=== PATIENT | female | born 1975 | race Caucasian/White ===

== ENCOUNTER → 2016-12-17 | Outpatient (CLI) | payer OTHER, MEDICARE | END | disposition home or self-care (01) | LOC: LAB 15:17 | PROVIDERS: ATTEND Internal Medicine | DX: M79.7 Fibromyalgia (principal); G89.4 Chronic pain syndrome | CPT/HCPCS: 80307 ==

== ENCOUNTER 2016-12-20 16:43 | Emergency (ER) | payer MEDICARE, OTHER ==
[~2016-12-20] VITALS: Ht 172.7 cm; Wt 109.8 kg
[2016-12-20 17:00] VITALS: BP 138/100
== END 2016-12-20 20:40 | disposition left against medical advice (07) ==
LOC: ER 16:43
DX: Z76.1 Encounter for health supervision and care of foundling (principal); Z76.0 Encounter for issue of repeat prescription; Z53.21 Procedure and treatment not carried out due to patient leaving prior to being seen by health care provider

== ENCOUNTER → 2017-05-06 | Outpatient (CLI) | payer OTHER, MEDICAID ==
[2017-05-06 16:20] LABS: Basophils # (auto) 0.1 uL; Eosinophils # (auto) 0.2 uL; Eosinophils % (auto) 1.8 % (0.0-7.0); Lymphocytes # (auto) 3.7 uL; Lymphocytes % (auto) 30.5 % (10.0-50.0); Mean Corpuscular Hemoglobin 30.2 pg (28.0-32.0); Mean Corpuscular Hgb Conc. 33.3 g/dL (32.0-36.0); Mean Corpuscular Volume 90.9 fL (80.0-100.0); Monocytes # (auto) 0.6 uL; Neutrophils # (auto) 7.5 uL; Neutrophils % (auto) 61.7 % (37.0-80.0); Nucleated Red Blood Cells % 0.1 %; Platelet Count (auto) 328 10^3/uL (140-450); Red Blood Cells 4.95 10^6/uL (4.0-5.20); Red Cell Distribution Width 13.1 % (11.8-14.3); White Blood Cell 12.1 10^3/uL (4.4-10.8)
[2017-05-06 16:56] LABS: Urine Bacteria NONE SEEN /hpf (None Seen); Urine Blood Negative /uL (Negative); Urine Specific Gravity 1.005 (1.001-1.035); Urine WBC <1 /hpf (0 - 5)
[2017-05-06 17:01] LABS: Albumin 4.3 g/dL (3.4-5.0); BUN/Creatinine Ratio 12.5; Bilirubin, Total 0.8 mg/dL (0.2-1.0); Calcium 9.1 mg/dL (8.5-10.1); Potassium 4.4 mmol/L (3.5-5.1)
[2017-05-06 17:03] LABS: Free T4 (Free Thyroxine) 0.91 ng/dL (0.89-1.76)
[2017-05-06 17:04] LABS: Follicle Stimulating Hormone 6.45 IU/L (SEE BELOW)
== END | disposition home or self-care (01) ==
LOC: LAB 16:03
PROVIDERS: ATTEND Internal Medicine
DX: E03.9 Hypothyroidism, unspecified (principal); R25.1 Tremor, unspecified
CPT/HCPCS: 36415; 80053; 80061; 81001; 83001; 84439; 84443; 85025; 85652

== ENCOUNTER → 2017-06-01 | Outpatient (CLI) | payer MEDICARE, OTHER ==
[2017-06-01 14:36] LABS: Basophils # (auto) 0 uL; Basophils % (auto) 0.3 % (0.0-2.0); Eosinophils # (auto) 0.2 uL; Eosinophils % (auto) 1.8 % (0.0-7.0); Hematocrit 41.6 % (36.0-46.0); Hemoglobin 13.8 g/dL (12.2-16.2); Lymphocytes # (auto) 3.4 uL; Lymphocytes % (auto) 30.4 % (10.0-50.0); Mean Corpuscular Hemoglobin 30.6 pg (28.0-32.0); Mean Corpuscular Hgb Conc. 33.3 g/dL (32.0-36.0); Mean Corpuscular Volume 91.8 fL (80.0-100.0); Mean Platelet Volume 8.6 fL (6.9-10.8); Monocytes # (auto) 0.5 uL; Monocytes % (auto) 4.2 % (0.0-12.0); Neutrophils % (auto) 63.3 % (37.0-80.0); Nucleated Red Blood Cells % 0.1 %; Platelet Count (auto) 278 10^3/uL (140-450); Red Cell Distribution Width 13.5 % (11.8-14.3); White Blood Cell 11.1 10^3/uL (4.4-10.8)
[2017-06-01 15:00] LABS: Urine Bilirubin Negative (Negative); Urine Blood Negative /uL (Negative); Urine Color Yellow (Yellow); Urine Glucose Normal (Normal); Urine Ketone Negative (Negative); Urine Nitrite Negative (Negative); Urine RBC 1 /hpf (0 - 4); Urine Squamous Epithelial Cell FEW /hpf (<5); Urine Urobilinogen Normal (Negative)
[2017-06-01 15:01] LABS: Albumin 3.9 g/dL (3.4-5.0); BUN/Creatinine Ratio 12.5; Bilirubin, Total 0.7 mg/dL (0.2-1.0); Calcium 8.6 mg/dL (8.5-10.1); Total Protein 7.3 g/dL (6.4-8.2)
[2017-06-02 17:07] LABS: Sjogren's Anti-SS-A Antibody <0.2 AI (0.0-0.9)
[2017-06-03 04:06] LABS: Thyroid Peroxidase (TPO) Ab 16 IU/mL (0-34)
[2017-06-03 10:08] LABS: Anti-intermyofibrillar Ab Negative (Neg:<1:20); Anti-sarcolemma Antibody Negative (Neg:<1:20)
== END | disposition home or self-care (01) ==
LOC: LAB 13:39
PROVIDERS: ATTEND Internal Medicine
DX: N95.1 Menopausal and female climacteric states (principal); M25.50 Pain in unspecified joint; R00.2 Palpitations; R73.01 Impaired fasting glucose
CPT/HCPCS: 36415; 80053; 81001; 82088; 82384; 83001; 83036; 84439; 84443; 85025; 86225; 86235; 87040

== ENCOUNTER → 2017-10-06 | Outpatient (CLI) | payer MEDICARE, OTHER ==
[2017-10-06 14:28] LABS: Basophils # (auto) 0.1 uL; Basophils % (auto) 0.8 % (0.0-2.0); Eosinophils # (auto) 0.1 uL; Eosinophils % (auto) 1.1 % (0.0-7.0); Hemoglobin 13.9 g/dL (12.2-16.2); Lymphocytes # (auto) 2.9 uL; Lymphocytes % (auto) 28.9 % (10.0-50.0); Mean Corpuscular Hemoglobin 30.5 pg (28.0-32.0); Mean Corpuscular Hgb Conc. 33.1 g/dL (32.0-36.0); Mean Corpuscular Volume 92.2 fL (80.0-100.0); Monocytes # (auto) 0.4 uL; Neutrophils # (auto) 6.5 uL; Neutrophils % (auto) 65.2 % (37.0-80.0); Nucleated Red Blood Cells % 0.1 %; Platelet Count (auto) 279 10^3/uL (140-450); Red Blood Cells 4.56 10^6/uL (4.0-5.20); Red Cell Distribution Width 13.5 % (11.8-14.3); White Blood Cell 9.9 10^3/uL (4.4-10.8)
[2017-10-06 14:56] LABS: Leuteinizing Hormone 7.7 IU/L
[2017-10-06 14:57] LABS: Follicle Stimulating Hormone 10.35 IU/L (SEE BELOW)
== END | disposition home or self-care (01) ==
LOC: LAB 13:23
PROVIDERS: ATTEND Obstetrics & Gynecology
DX: N93.9 Abnormal uterine and vaginal bleeding, unspecified (principal); E03.9 Hypothyroidism, unspecified; I10 Essential (primary) hypertension
CPT/HCPCS: 36415; 82670; 83001; 83002; 84403; 84443; 85025

== ENCOUNTER → 2017-11-15 | Outpatient (CLI) | payer MEDICARE, OTHER ==
[2017-11-15 16:26] LABS: Basophils # (auto) 0.1 uL; Basophils % (auto) 1.4 % (0.0-2.0); Eosinophils # (auto) 0.1 uL; Eosinophils % (auto) 1.2 % (0.0-7.0); Hematocrit 42.5 % (36.0-46.0); Hemoglobin 14.2 g/dL (12.2-16.2); Lymphocytes # (auto) 2.9 uL; Lymphocytes % (auto) 27.9 % (10.0-50.0); Mean Corpuscular Hemoglobin 30.6 pg (28.0-32.0); Mean Corpuscular Hgb Conc. 33.4 g/dL (32.0-36.0); Mean Corpuscular Volume 91.7 fL (80.0-100.0); Monocytes # (auto) 0.5 uL; Monocytes % (auto) 4.6 % (0.0-12.0); Neutrophils # (auto) 6.7 uL; Neutrophils % (auto) 64.9 % (37.0-80.0); Nucleated Red Blood Cells % 0.1 %; Platelet Count (auto) 295 10^3/uL (140-450); Red Blood Cells 4.64 10^6/uL (4.0-5.20); Red Cell Distribution Width 13.5 % (11.8-14.3); White Blood Cell 10.4 10^3/uL (4.4-10.8)
[2017-11-15 16:58] LABS: Magnesium 2.6 mg/dL (1.6-2.6); Potassium 4.4 mmol/L (3.5-5.1)
== END | disposition home or self-care (01) ==
LOC: LAB 16:04
PROVIDERS: ATTEND Internal Medicine
DX: I10 Essential (primary) hypertension (principal); E03.9 Hypothyroidism, unspecified
CPT/HCPCS: 36415; 83735; 84132; 84439; 84443; 85025

== ENCOUNTER → 2018-02-09 | Outpatient (CLI) | payer MEDICARE, OTHER | END | disposition home or self-care (01) | LOC: LAB 10:53 | PROVIDERS: ATTEND Internal Medicine | DX: I10 Essential (primary) hypertension (principal); R00.2 Palpitations; R00.0 Tachycardia, unspecified; E03.9 Hypothyroidism, unspecified | CPT/HCPCS: 82384 ==

== ENCOUNTER → 2018-07-25 | Outpatient (CLI) | payer MEDICARE, OTHER ==
[2018-07-25 16:21] LABS: Albumin 4.3 g/dL (3.4-5.0); Anion Gap 4 (5-15); Calcium 8.8 mg/dL (8.5-10.1); Carbon Dioxide 28 mmol/L (21-32); Chloride 104 mmol/L (98-107); Glucose 75 mg/dL (74-106); Magnesium 2.4 mg/dL (1.6-2.6); Potassium 4.8 mmol/L (3.5-5.1); Sodium 136 mmol/L (136-145)
[2018-07-25 16:29] LABS: Alkaline Phosphatase 78 U/L (45-117); Aspartate Aminotransferase 14 U/L (15-37); BUN/Creatinine Ratio 12.9; Bilirubin, Total 0.7 mg/dL (0.2-1.0); Blood Urea Nitrogen 9 mg/dL (7-18); GFR African American > 60 mL/min; GFR Non-African American > 60 mL/min
[2018-07-25 16:31] LABS: Alanine Aminotransferase 20 U/L (13-56)
== END | disposition home or self-care (01) ==
LOC: LAB 15:25
PROVIDERS: ATTEND Internal Medicine
DX: R00.2 Palpitations (principal); I10 Essential (primary) hypertension; E03.9 Hypothyroidism, unspecified
CPT/HCPCS: 36415; 80053; 83735; 84439; 84443

== ENCOUNTER → 2019-04-25 | Outpatient (CLI) | payer MEDICARE, OTHER ==
[2019-04-25 11:16] LABS: Basophils # (auto) 0.1 uL; Basophils % (auto) 0.7 % (0.0-2.0); Eosinophils # (auto) 0.2 uL; Eosinophils % (auto) 2.5 % (0.0-7.0); Hematocrit 43.2 % (36.0-46.0); Hemoglobin 14.3 g/dL (12.2-16.2); Lymphocytes # (auto) 2.5 uL; Lymphocytes % (auto) 25.8 % (10.0-50.0); Mean Corpuscular Hgb Conc. 33.2 g/dL (32.0-36.0); Mean Corpuscular Volume 90.3 fL (80.0-100.0); Monocytes # (auto) 0.5 uL; Monocytes % (auto) 5.4 % (0.0-12.0); Neutrophils # (auto) 6.4 uL; Neutrophils % (auto) 65.6 % (37.0-80.0); Platelet Count (auto) 299 10^3/uL (140-450); Red Blood Cells 4.79 10^6/uL (4.0-5.20); Red Cell Distribution Width 13.4 % (11.8-14.3); White Blood Cell 9.8 10^3/uL (4.4-10.8)
[2019-04-25 11:18] LABS: Urine Bacteria NONE SEEN /hpf (None Seen); Urine Blood Negative /uL (Negative); Urine Specific Gravity 1.012 (1.001-1.035); Urine WBC 1 /hpf (0 - 5)
[2019-04-25 12:22] LABS: Potassium 4.2 mmol/L (3.5-5.1)
[2019-04-25 12:40] LABS: BUN/Creatinine Ratio 10.7; Bilirubin, Total 0.3 mg/dL (0.2-1.0); Total Protein 7.5 g/dL (6.4-8.2)
== END | disposition home or self-care (01) ==
LOC: LAB 10:31
PROVIDERS: ATTEND Internal Medicine
DX: I10 Essential (primary) hypertension (principal)
CPT/HCPCS: 36415; 80053; 80061; 81001; 82043; 84439; 84443; 85025; 85652

== ENCOUNTER → 2019-12-06 | Emergency (ER) | payer MEDICARE, OTHER ==
[~2019-12-06] VITALS: Ht 172.7 cm; Wt 95.3 kg
[~2019-12-06] MED LIST: AMIT25TA9 PO; BUSP15TA60 PO; HYDR-4833 PO; METO-159 PO; MIDAZOLAM HCL 5 MG/ML-1ML VIAL IV ONE; MORPHINE SULF INJ 2 MG/ML SYRINGE 1ML ONE; MORPHINE SULFATE 4 MG/ML SYR/VIAL IV ONE; ONDANSETRON HCL 4 MG/2 ML VIAL IV ONE; ONDANSETRON HCL 4 MG/2 ML VIAL ONE; ROPI3TAB4 PO; SERT-160 PO; TIZA4CAP PO; fentaNYL CITRATE 100 MCG/2 ML VL IV ONE
[2019-12-06 03:04] LABS: Basophils # (auto) 0.1 10 ^3/uL (0-0.2); Basophils % (auto) 0.4 % (0.0-2.0); Eosinophils # (auto) 0.1 10 ^3/uL (0-0.8); Eosinophils % (auto) 0.5 % (0.0-7.0); Hematocrit 41.4 % (36.0-46.0); Hemoglobin 13.8 g/dL (12.2-16.2); Lymphocytes # (auto) 1.9 10 ^3/uL (0.4-5.4); Lymphocytes % (auto) 10.1 % (10.0-50.0); Mean Corpuscular Hemoglobin 30.1 pg (28.0-32.0); Mean Corpuscular Hgb Conc. 33.2 g/dL (32.0-36.0); Mean Corpuscular Volume 90.7 fL (80.0-100.0); Monocytes # (auto) 0.8 10 ^3/uL (0-1.3); Monocytes % (auto) 4.3 % (0.0-12.0); Neutrophils # (auto) 16.2 10 ^3/uL (1.6-8.6); Neutrophils % (auto) 84.7 % (37.0-80.0); Nucleated Red Blood Cells % 0.3 %; Platelet Count (auto) 283 10^3/uL (140-450); Red Blood Cells 4.56 10^6/uL (4.0-5.20); Red Cell Distribution Width 14.5 % (11.8-14.3); White Blood Cell 19.1 10^3/uL (4.4-10.8)
[2019-12-06 03:22] LABS: Albumin 3.9 g/dL (3.4-5.0); Anion Gap 7 (5-15); Blood Urea Nitrogen 24 mg/dL (7-18); Calcium 8.8 mg/dL (8.5-10.1); Carbon Dioxide 25 mmol/L (21-32); Chloride 106 mmol/L (98-107); Glucose 127 mg/dL (74-106); Magnesium 2.5 mg/dL (1.6-2.6); Potassium 3.9 mmol/L (3.5-5.1); Sodium 138 mmol/L (136-145)
[2019-12-06 03:31] LABS: Alanine Aminotransferase 22 U/L (13-56); Alkaline Phosphatase 86 U/L (45-117); Aspartate Aminotransferase 13 U/L (15-37); Bilirubin, Total 0.4 mg/dL (0.2-1.0); GFR African American 70 mL/min; GFR Non-African American 58 mL/min; Total Protein 7.2 g/dL (6.4-8.2)
[2019-12-06 06:37] VITALS: BP 121/65
== END | disposition home or self-care (01) ==
LOC: EDUNIT# 01:41 → EDBD 01:50 → ER 01:53
DX: S82.891A Other fracture of right lower leg, initial encounter for closed fracture (principal); E07.9 Disorder of thyroid, unspecified; Z88.2 Allergy status to sulfonamides; Z88.8 Allergy status to other drugs, medicaments and biological substances; W19.XXXA Unspecified fall, initial encounter; Y93.89 Activity, other specified; Y92.89 Other specified places as the place of occurrence of the external cause; Y99.8 Other external cause status
CPT/HCPCS: 27840; 36415; 70450; 73600; 73610; 80053; 83735; 84484; 85025; 93005; 96374; 96375; 99152; 99285; J2250; J2270; J2405; J3010

== ENCOUNTER 2019-12-07 15:10 | Inpatient (IN) | payer MEDICARE, OTHER ==
[~2019-12-07] VITALS: Ht 172.7 cm; Wt 98.0 kg
[2019-12-07 15:30] VITALS: BP 126/64
--- NOTE | 2019-12-07 15:30 | NUR ---
PT ARRIVED FROM ER VIA WHEELCHAIR, RT FOOT IS COVERED WITH ROSANGELA WRAP, WAS ABLE TO TRANSFER HER SELF TO BED CAREFULLY, WITH SOME ASSISTANCE, PT IS ALERT ORIENTED X4, ABLE TO VERBALIS HER NEEDS, ROOM ORIENTATION GIVEN TO PT, CALL LIGHT WITHIN REACH
[2019-12-07] MEDS ORDERED: DOCUSATE SOD 100 MG CAP PO PRN (15:45)
[2019-12-07] MEDS ORDERED: MORPHINE SULF INJ 2 MG/ML SYRINGE 1ML IV PRN (15:45)
[2019-12-07] MEDS ORDERED: ALUM & MAG HYDROX-SIMETH LIQ(MAALOX) 30 ML PO PRN (15:45)
[2019-12-07] MEDS ORDERED: NITROGLYCERIN 0.4 MG SL TAB SL PRN (15:45)
--- NOTE | 2019-12-07 15:45 | NUR ---
IV insertion IV access obtained, via clean sterile technique by inserting 22 gauge catheter at after attempt(s). IV secured properly. No trauma to site. Patient tolerated procedure well.
[2019-12-07] MEDS ORDERED: hydrALAZINE HCL 20 MG/ML VL IV PRN (16:00)
[2019-12-07] MEDS ORDERED: cefTRIAXone 1GM/50ML D5W 50 ML IV ONE (16:00)
--- NOTE | 2019-12-07 16:15 | NUR ---
DR AYALA AT BED SIDE FOLLOWING UP ON PT WITH NEW ORDERS
[2019-12-07] MEDS ORDERED: METOPROLOL TARTRATE 1MG/1ML-5ML VIAL IV PRN (16:30)
--- NOTE | 2019-12-07 16:30 | NUR ---
ECG TAKEN DR AYALA MADE AWARE OF THE RESULTS
[2019-12-07] MEDS: SODIUM CHLORIDE 0.9% 1,000 ML IV SCH (16:38)
[2019-12-07 16:49] LABS: Basophils # (auto) 0.1 10 ^3/uL (0-0.2); Basophils % (auto) 0.4 % (0.0-2.0); Eosinophils # (auto) 0.3 10 ^3/uL (0-0.8); Eosinophils % (auto) 2.4 % (0.0-7.0); Hematocrit 40.5 % (36.0-46.0); Hemoglobin 13.5 g/dL (12.2-16.2); Lymphocytes # (auto) 2.7 10 ^3/uL (0.4-5.4); Mean Corpuscular Hemoglobin 30.9 pg (28.0-32.0); Mean Corpuscular Hgb Conc. 33.4 g/dL (32.0-36.0); Mean Corpuscular Volume 92.4 fL (80.0-100.0); Monocytes # (auto) 0.7 10 ^3/uL (0-1.3); Monocytes % (auto) 5.8 % (0.0-12.0); Neutrophils % (auto) 70.4 % (37.0-80.0); Platelet Count (auto) 225 10^3/uL (140-450); Red Blood Cells 4.38 10^6/uL (4.0-5.20); Red Cell Distribution Width 14.3 % (11.8-14.3); White Blood Cell 12.8 10^3/uL (4.4-10.8)
[2019-12-07 16:50] LABS: Anion Gap 2 (5-15); Blood Urea Nitrogen 9 mg/dL (7-18); Calcium 8.2 mg/dL (8.5-10.1); Carbon Dioxide 28 mmol/L (21-32); Chloride 109 mmol/L (98-107); Glucose 91 mg/dL (74-106); Potassium 4.4 mmol/L (3.5-5.1); Sodium 139 mmol/L (136-145)
[2019-12-07 16:57] LABS: Cholesterol 165 mg/dL (< 200); GFR African American 119 mL/min; GFR Non-African American 99 mL/min; HDL Cholesterol 59 mg/dL (40-59); LDL Cholesterol 85 mg/dL (< 100); Triglycerides 90 mg/dL (< 150)
[2019-12-07] MEDS: MORPHINE SULF INJ 2 MG/ML SYRINGE 1ML IV PRN ×2 (17:08→21:57)
[2019-12-07 17:12] VITALS: BP 125/72
--- NOTE | 2019-12-07 19:00 | NUR ---
PT CONTINUE STABLE, CONTINUE MONITORING
[2019-12-07] MEDS: TEMAZEPAM 15 MG CAP PO PRN (20:59)
[2019-12-07] MEDS: HYDROcodone-ACET 5/325MG TAB PO PRN (20:59)
--- NOTE | 2019-12-07 21:45 | NUR ---
PATIENT ADMITTED TODAY WITH FRATURE RIGHT ANKLE FOLLOWING A FALL. 2058 MEDICATED FOR PAIN WITH NORCO.
[2019-12-07] MEDS: ATORVASTATIN 20 MG TAB PO SCH (21:54)
[2019-12-07] MEDS: busPIRone HCL 10 MG TAB PO SCH (21:54)
[2019-12-07] MEDS: AMITRIPTYLINE HCL 25 MG TAB PO SCH (21:54)
[2019-12-07 22:00] VITALS: BP 109/67
[2019-12-08] MEDS: MORPHINE SULF INJ 2 MG/ML SYRINGE 1ML IV PRN ×4 (02:41→22:32)
[2019-12-08 04:30] VITALS: BP 118/76
--- NOTE | 2019-12-08 06:52 | NUR ---
PATIENT SLEPT WELL DURING THE NIGHT. CONSENT OBTAINED FOR POSSIBLE SURGICAL REPAIR OF RIGHT FOOT FRACTURE.
[2019-12-08 06:58] LABS: Basophils # (auto) 0.1 10 ^3/uL (0-0.2); Basophils % (auto) 0.7 % (0.0-2.0); Eosinophils # (auto) 0.4 10 ^3/uL (0-0.8); Hematocrit 39.7 % (36.0-46.0); Hemoglobin 13.2 g/dL (12.2-16.2); Lymphocytes # (auto) 2.8 10 ^3/uL (0.4-5.4); Lymphocytes % (auto) 27.9 % (10.0-50.0); Mean Corpuscular Hemoglobin 30.6 pg (28.0-32.0); Mean Corpuscular Hgb Conc. 33.3 g/dL (32.0-36.0); Mean Corpuscular Volume 91.9 fL (80.0-100.0); Monocytes # (auto) 0.7 10 ^3/uL (0-1.3); Monocytes % (auto) 6.7 % (0.0-12.0); Neutrophils % (auto) 60.7 % (37.0-80.0); Nucleated Red Blood Cells % 0.1 %; Platelet Count (auto) 204 10^3/uL (140-450); Red Blood Cells 4.33 10^6/uL (4.0-5.20); Red Cell Distribution Width 14.3 % (11.8-14.3); White Blood Cell 9.8 10^3/uL (4.4-10.8)
[2019-12-08 07:20] LABS: Potassium 4.2 mmol/L (3.5-5.1)
[2019-12-08 07:28] LABS: INR 0.96 (0.9-1.15); Partial Thromboplastin Time 30.1 sec (23.64-32.05)
[2019-12-08 07:31] LABS: BUN/Creatinine Ratio 15.9; Bilirubin, Total 0.6 mg/dL (0.2-1.0); Magnesium 2.6 mg/dL (1.6-2.6); Phosphorus 3.6 mg/dL (2.5-4.90); Total Protein 6.1 g/dL (6.4-8.2)
[2019-12-08] MEDS ORDERED: SERT-160 PO (08:05)
[2019-12-08] MEDS ORDERED: TIZA4CAP PO (08:05)
[2019-12-08] MEDS ORDERED: HYDR-4833 PO (08:05)
[2019-12-08] MEDS ORDERED: ROPI3TAB4 PO (08:05)
[2019-12-08] MEDS ORDERED: BUSP15TA60 PO (08:05)
[2019-12-08] MEDS ORDERED: METO-159 PO (08:05)
[2019-12-08] MEDS ORDERED: AMIT25TA9 PO (08:05)
[2019-12-08] MEDS: cefTRIAXone 1GM/50ML D5W 50 ML IV SCH (09:24)
[2019-12-08] MEDS: METOPROLOL SUCCINATE XL 50 MG TAB PO SCH (09:25)
[2019-12-08] MEDS: busPIRone HCL 10 MG TAB PO SCH ×2 (09:26→22:00)
[2019-12-08] MEDS: SERTRALINE HCL 50 MG TAB PO SCH (09:26)
[2019-12-08] MEDS: SODIUM CHLORIDE 0.9% 1,000 ML IV SCH (09:26)
[2019-12-08] MEDS ORDERED: ENOXAPARIN SOD 40 MG/0.4 ML SYRINGE SC SCH (10:00)
[2019-12-08] MEDS ORDERED: DULoxetine HCL 30 MG CAP PO SCH (10:00)
[2019-12-08 11:04] LABS: Urine Bacteria FEW /hpf (None Seen); Urine Blood Negative /uL (Negative); Urine WBC 1 /hpf (0 - 5)
--- NOTE | 2019-12-08 11:14 | NUR ---
PAGE DR CAN REGARDING THE CARIOLOGY CLEARANCE
[2019-12-08 12:51] VITALS: BP 112/77
[2019-12-08 15:22] VITALS: BP 112/77
--- NOTE | 2019-12-08 15:45 | NUR ---
BM PT ASSISTED WITH THE FRONT WHEEL WALKER WITH NON FOOT BEARING TO THE BATHROOM TO HAVE BM, THEN BACK TO BED, TOLERATED WELL
[2019-12-08 16:53] VITALS: BP 117/84
--- NOTE | 2019-12-08 18:27 | NUR ---
PT ON PAIN MANAGEMENT NEEDED
--- NOTE | 2019-12-08 18:36 | NUR ---
PT CONTINUE STABLE, CONTINUE STABLE, CONTINUE MONITORING
--- NOTE | 2019-12-08 21:07 | NUR ---
1899. REPORT OBTAINED ON PATIENT. RESTING WELL IN BED. RIGHT LEG IMMOBILIZED. DENIES PAIN AT THIS TIME. SURGERY COMFIRMED BY LOIS DRAKE FOR 8QM IN THE MORNING. PATIENT NOTIFIED. REMAINS NPO AFTER MIDNIGHT.
[2019-12-08 21:12] VITALS: BP 115/72
[2019-12-08] MEDS: ATORVASTATIN 20 MG TAB PO SCH (22:00)
[2019-12-08] MEDS: AMITRIPTYLINE HCL 25 MG TAB PO SCH (22:00)
--- NOTE | 2019-12-08 22:15 | NUR ---
RT NOTE PT PLACED ON HOSPITAL OWNED HOME CPAP UNIT # RESPIRATORY 3 WITH MEDIUM NASAL MASK ON STATED SETTINGS OF APAP 4-17 CMH2O. CPAP IS PLUGGED TO RED OUTLET. HUMIDIFIER FILLED TO FILL LINE AND SET TO 1. PT IS ON BEDSIDE POX PER PROTOCOL. ALARMS ARE AUDIBLE TO NURSES STATION. PT APPEARS TO TOLERATE WELL. PT AWARE TO CALL IF ADJUSTMENTS NEED TO BE MADE OR ANY OTHER QUESTIONS. CONT ORDERED Addendum: 12/08/19 at 2250 by Carisa Steve RT Amended: Links added.
--- NOTE | 2019-12-09 00:25 | NUR ---
RT NOTE PT WAS SEEN BY RT FOR ROUTINE CPAP CHECK. PT IS AWAKE AND ALERT. PT IS OFF CPAP AT THIS TIME. PT STATES SHE JUST GOT TOO HOT, SWEATY AND UNCOMFORTABLE AND HAS ASKED THE RN TO PAGE RT TO TURN OFF CPAP. RN TOLD PT SHE TONY TO WAIT UNTIL RT RETURNED TO CHECK ON IT TO ASK. PT OFFERED O2, BUT DECLINED AT THIS TIME. PT AWARE TO ASK DIRECTOR SALES SUPPORT (SINCE RN REFUSED EARLIER) IF RT IS NEEDED AND RT WILL RETURN. SPOKE WITH MARIUM MONAE AND HE WILL CALL RT IF PT NEEDS US Addendum: 12/09/19 at 0101 by Carisa Steve RT Amended: Links added.
[2019-12-09] MEDS: SODIUM CHLORIDE 0.9% 1,000 ML IV SCH ×2 (01:20→17:43)
[2019-12-09 04:33] VITALS: BP 123/84
--- NOTE | 2019-12-09 05:52 | NUR ---
PATIENT UP AND TO THE BATHROOM. DENIED DISCOMFORT. IV INFUSING AT 60MLS/HOUR.
--- NOTE | 2019-12-09 07:11 | NUR ---
Respiratory note: PT FOUND TO BE OFF CPAP,STATES SHE DID NOT LIKE ALL THE STRAPS AND BULKINESS OF OUR MASK. STATES IT MADE HER HOT AND SWEATY. PT STATES SHE WILL TRY AND HAVE A FAMILY MEMBER BRING HER MASK TO HER. HR 108 RR 16 SPO2 97% ON RA. PT AND RN AWARE TO HAVE RT PAGED IF NEEDED.
--- NOTE | 2019-12-09 07:15 | NUR ---
REPORT RECEIVED FROM [employer] SUPERVISOR PT IS RESTING COMFORTABLY IN BED, RT LEG ELEVATED, NO DISTRESS NOTED
[2019-12-09] MEDS: cefTRIAXone 1GM/50ML D5W 50 ML IV SCH (07:36)
[2019-12-09] MEDS: busPIRone HCL 10 MG TAB PO SCH ×2 (07:36→21:04)
[2019-12-09] MEDS: SERTRALINE HCL 50 MG TAB PO SCH (07:37)
[2019-12-09] MEDS: METOPROLOL SUCCINATE XL 50 MG TAB PO SCH ×2 (07:38→21:05)
--- NOTE | 2019-12-09 07:40 | NUR ---
PT OUT OF BED TO BATHROOM WITH FRONT WHEEL WALKER TO HAVE BM, WITH NON WEIGHT BEARING ON THE RT FOOT
[2019-12-09] MEDS ORDERED: fentaNYL CITRATE 100 MCG/2 ML VL ONE ×2 (07:53→08:59)
[2019-12-09] MEDS ORDERED: MIDAZOLAM HCL 1MG/1ML-2 ML VIAL ONE (07:53)
--- NOTE | 2019-12-09 07:55 | NUR ---
TRANSFER PT TO PREOP VIA HOSPITAL BED, ALERT ORIENTED X4, NO DISTRESS NOTED, INTACT SOFT SPLINT NOTED ON TH ERT FOOT, REPORT GIVEN TO PETER ALFREDO
[2019-12-09 08:00] VITALS: BP 123/84
[2019-12-09] MEDS ORDERED: LIDOCAINE 1% HCL (LOCAL ANESTH.) INJ 20ML MDV ONE (08:20)
[2019-12-09] MEDS ORDERED: ROPIVACAINE 0.5% (5MG/ML) 20ML AMPULE IJ ONE (08:20)
[2019-12-09] MEDS ORDERED: METOCLOPRAMIDE HCL 5MG/ml INJ 2ml VIAL ONE (08:52)
[2019-12-09] MEDS ORDERED: PROPOFOL 10 MG/ML 20 ML IV ONE (09:04)
[2019-12-09] MEDS ORDERED: ceFAZolin 1GM/50ML 50 ML IV ONE (11:10)
[2019-12-09] MEDS ORDERED: HYDROmorphone HCL 2 MG/ML VL ONE (11:13)
[2019-12-09] MEDS: HYDROmorphone HCL 2 MG/ML VL IV PRN ×7 (11:14→20:46)
[2019-12-09] MEDS ORDERED: ONDANSETRON HCL 4 MG/2 ML VIAL IV PRN (11:15)
[2019-12-09] MEDS: ceFAZolin 1GM/50ML 50 ML IV SCH ×2 (12:00→18:27)
--- NOTE | 2019-12-09 12:00 | NUR ---
OPAL ALFREDO FROM RECOVERY ROOM CALLED WITH REPORT OF VS, AND THAT DR DRAKE DID CALLED PATIENT'S [place] [employer] WITH THE UPDATE
--- NOTE | 2019-12-09 12:15 | NUR ---
PT IS BACK TO HER ROOM, ALERT ORIENTED X4, VIA HOSPITAL BED, RT LEG ON HARD SPLINT WRAP WITH ROSANGELA WRAP, FEELING SORE AT THE RT SIDE OF HER ANKLE 10/11, AND COMPLAINING FROM NAUSEA, MADE AWARE THAT ITS THE SIDE EFFECT OF THE ANAESTHESIA AND DILAUDID
[2019-12-09] MEDS ORDERED: cefTRIAXone SOD 1,000 MG VL IV ONE (12:52)
[2019-12-09] MEDS: ONDANSETRON HCL 4 MG/2 ML VIAL IV PRN ×2 (13:01→20:46)
[2019-12-09 16:48] VITALS: BP 119/74
--- NOTE | 2019-12-09 17:00 | NUR ---
PHYSICAL THERAPY AT BED SIDE, ASSISTING PT TO GET OUT OF BED WITH FRONT WHEEL WALKER TO AMBULATE IN THE HALLWAYS AND BACK TO BED, TOLERATED WELL
--- NOTE | 2019-12-09 18:35 | NUR ---
PT CONTINUE STABLE, CONTINUE MONITORING
--- NOTE | 2019-12-09 19:13 | NUR ---
Opening Shift Note Assumed care of patient, awake and alert. No S/S of distress/SOB or pain. Instructed on POC and to call for assist PRN, will continue to monitor for changes Q1hr and PRN. Side rails up x2. Bed locked in lowest position. Call light within reach.
[2019-12-09] MEDS: ATORVASTATIN 20 MG TAB PO SCH (21:04)
[2019-12-09] MEDS: AMITRIPTYLINE HCL 25 MG TAB PO SCH (21:04)
[2019-12-09 22:00] VITALS: BP 129/85
[2019-12-09] MEDS: HYDROcodone-ACET 5/325MG TAB PO PRN (22:12)
[2019-12-10] MEDS: TEMAZEPAM 15 MG CAP PO PRN ×2 (01:43→21:38)
[2019-12-10] MEDS: ONDANSETRON HCL 4 MG/2 ML VIAL IV PRN (03:16)
[2019-12-10] MEDS: HYDROmorphone HCL 2 MG/ML VL IV PRN ×5 (03:17→17:24)
[2019-12-10 05:00] VITALS: BP 128/78
[2019-12-10] MEDS: ceFAZolin 1GM/50ML 50 ML IV SCH ×4 (05:25→17:24)
[2019-12-10 06:17] LABS: Hematocrit 40.6 % (36.0-46.0); Hemoglobin 13.5 g/dL (12.2-16.2)
--- NOTE | 2019-12-10 06:46 | NUR ---
Pt taken off CPAP by RN. HR 92, RR 16, SPO2 97% on room air. No s/s of respiratory distress noted. Pt states she will wear again tonight, will endorse to noc shift RT.
--- NOTE | 2019-12-10 07:20 | NUR ---
Endorsed care to day shift RN.
[2019-12-10] MEDS: CYCLOBENZAPRINE HCL 10 MG TAB PO PRN ×2 (09:21→20:34)
[2019-12-10] MEDS: OXYCODONE W/ ACETAMINOPHEN 5/325MG TABLET PO PRN ×2 (09:21→20:34)
[2019-12-10] MEDS: busPIRone HCL 10 MG TAB PO SCH ×2 (09:22→21:37)
[2019-12-10] MEDS: METOPROLOL SUCCINATE XL 50 MG TAB PO SCH ×2 (09:22→21:38)
[2019-12-10] MEDS: SERTRALINE HCL 50 MG TAB PO SCH (09:23)
[2019-12-10] MEDS: ENOXAPARIN SOD 40 MG/0.4 ML SYRINGE SC SCH (09:23)
--- NOTE | 2019-12-10 09:30 | NUR ---
DR. MARTI AT BEDSIDE. REQUESTED [facility]. ORDER INPUT DR. POZO AWARE OF PLAN. 0942: DR. POZO AT BEDSIDE, PLAN OF CARE DISCUSSED. PT IN AGREEMENT WITH PLAN.
--- NOTE | 2019-12-10 10:17 | NUR ---
Attempted PT treatment. Pt requested to have PT in the afternoon due to fatigue and pain from getting up and going to the bathroom with morning. Will attempt again later.
[2019-12-10] MEDS: SODIUM CHLORIDE 0.9% 1,000 ML IV SCH (11:14)
--- NOTE | 2019-12-10 12:36 | NUR ---
DR DRAKE IN TO SEE PT. PER MD PT CAN GO TODAY OR TOMORROW, PAIN NEEDS TO BE CONTROLLED. MD TO RETURN AND APPLY BOOT.
[2019-12-10 13:00] VITALS: BP 106/66
[2019-12-10] MEDS: HYDROcodone-ACET 5/325MG TAB PO PRN (14:02)
[2019-12-10 16:48] VITALS: BP 108/70
[2019-12-10] MEDS: ATORVASTATIN 20 MG TAB PO SCH (21:37)
[2019-12-10] MEDS: AMITRIPTYLINE HCL 25 MG TAB PO SCH (21:37)
[2019-12-10 21:46] VITALS: BP 113/78
[2019-12-11] MEDS: ceFAZolin 1GM/50ML 50 ML IV SCH ×2 (00:06→06:31)
[2019-12-11] MEDS: HYDROcodone-ACET 5/325MG TAB PO PRN (00:07)
--- NOTE | 2019-12-11 01:30 | NUR ---
Patient requested to be disconnected from CPAP machine. Patient verbalized "I cannot sleep with it on". Will notify RT and continue to monitor.
[2019-12-11] MEDS: SODIUM CHLORIDE 0.9% 1,000 ML IV SCH (03:03)
[2019-12-11 05:00] VITALS: BP 114/77
[2019-12-11 06:16] LABS: Hematocrit 40.1 % (36.0-46.0); Hemoglobin 13.4 g/dL (12.2-16.2)
--- NOTE | 2019-12-11 07:20 | NUR ---
Endorsed care to day shift RN. Patient in bed awake with no signs of distress.
--- NOTE | 2019-12-11 07:44 | NUR ---
RT NOTE: PT ALREADY OFF OF BIPAP AND ON RA. NO SIGNS OF DISTRESS NOTED. WILL CONTINUE TO MONITOR.
[2019-12-11 07:58] VITALS: BP 112/83
--- NOTE | 2019-12-11 08:11 | NUR ---
DR. DRAKE AT BEDSIDE.
[2019-12-11] MEDS: METOPROLOL SUCCINATE XL 50 MG TAB PO SCH (09:33)
[2019-12-11] MEDS: CYCLOBENZAPRINE HCL 10 MG TAB PO PRN (09:33)
[2019-12-11] MEDS: OXYCODONE W/ ACETAMINOPHEN 5/325MG TABLET PO PRN (09:33)
[2019-12-11] MEDS: SERTRALINE HCL 50 MG TAB PO SCH (09:34)
[2019-12-11] MEDS: busPIRone HCL 10 MG TAB PO SCH (09:34)
[2019-12-11] MEDS: ENOXAPARIN SOD 40 MG/0.4 ML SYRINGE SC SCH (09:35)
--- NOTE | 2019-12-11 10:50 | NUR ---
Pt declined PT treatment today since she is being discharged. Reviewed FWW/4WW use with patient and answered all questions.
[2019-12-11 11:16] VITALS: BP 112/83
--- NOTE | 2019-12-11 12:10 | NUR ---
PATIENT BEING DISCHARGE TO CARE OF HER . PRESCRIPTIONS AND EDUCATION GIVEN REGARDING FOLLOW UP, ACTIVITY, DIET AND WHAT TO DO IN CASE OF WORSENING CONDITION, SOB OR CHEST PAIN. PATIENT VERBALIZED UNDERSTANDING. IV WAS REMOVED, TIP INTACT. TELE MONITOR REMOVED AND RETURNED. REACHED OUT TO ADRIANA VELOZ REGARDING DELIVERY OF WALKER, MESSAGE WAS LEFT. PATIENT INFORMED ME PLAN WAS TO DELIVER WALKER TO BEDSIDE. NOW, PATIENT STATES SHE HAS 4 WHEEL WALKER AT HOME AND WOULD LIKE TO DISCHARGE EVEN THOUGH HER WALKER IS NOT HERE. PATIENT IS ALERT AND ORIENTED AND STATES SHE WON'T BE HOME ALONE TODAY, SO SHE WILL HAVE HELP GETTING AROUND. PATIENT WHEELED DOWN WITH NANNETTE CARD.
--- NOTE | 2019-12-11 14:10 | NUR ---
Assessment Patient is a 44-year-old female who is alert and oriented. Prior to admission patient live home with her and functioned independently. Patient informed me she can care for her own ADLs. Patient informed me she has a walker with seat for home use. Per patient she will return home to her prior living arrangements post discharge and her will transport her home. Advised patient there is a social service consult for a walker. Informed patient clinical information will be faxed to [facility] and walker will be deliver to bedside. Informed patient she has the right to participate in all discharge planning. Patient verbalized understanding and agreed to discharge plan. Per Neha Lakhani walker will be deliver to bedside between 13:00-14:00. Informed JUNI Mora. Morgan informed me patient did not want to wait and requested for walker to be deliver home. Placed call to Neha Lakhani advising her patient requested for walker to be deliver to home. Received a call from Neha Lakhani at 14:00 advising me when they deliver walker to patient home patient refused walker. Addendum: 12/11/19 at 1705 by MAGDIEL WRIGHT Amended: Links added.
--- NOTE | 2019-12-11 16:23 | NUR ---
ss consult Per ss consult dcd today on home health for PT. Patient has been given a list of medicare providers. Per patient [facility] to provide service. order has been sent to [facility]. Per Latonia at [facility] service will start on 12/12/2019. Patient has been notified. Addendum: 12/11/19 at 1627 by Dulce WRIGHT Amended: Links added.
== END 2019-12-11 12:26 | disposition home health service (06) | DRG 493 ==
LOC: TELE-EAST 15:10
PROVIDERS: ADMIT Internal Medicine; ATTEND Family Medicine
PROC: 5A09357 Assistance with Respiratory Ventilation, Less than 24 Consecutive Hours, Continuous Positive Airway Pressure (ICD-10-PCS; 2019-12-08)
PROC: 0SBF0ZZ Excision of Right Ankle Joint, Open Approach (ICD-10-PCS; 2019-12-09)
PROC: 0MQQ0ZZ Repair Right Ankle Bursa and Ligament, Open Approach (ICD-10-PCS; 2019-12-09)
PROC: 0SSF04Z Reposition Right Ankle Joint with Internal Fixation Device, Open Approach (ICD-10-PCS; 2019-12-09)
PROC: 0J8 Subcutaneous Tissue and Fascia, Division (ICD-10-PCS; 2019-12-09)
PROC: 0QSJ04Z Reposition Right Fibula with Internal Fixation Device, Open Approach (ICD-10-PCS; principal; 2019-12-09 08:21)
PROC: 5A09357 Assistance with Respiratory Ventilation, Less than 24 Consecutive Hours, Continuous Positive Airway Pressure (ICD-10-PCS; 2019-12-10)
DX: S82.61XA Displaced fracture of lateral malleolus of right fibula, initial encounter for closed fracture (principal); N10 Acute pyelonephritis; I47.1 Supraventricular tachycardia; F41.9 Anxiety disorder, unspecified; G25.81 Restless legs syndrome; F32.9 Major depressive disorder, single episode, unspecified; I10 Essential (primary) hypertension; G89.29 Other chronic pain; E66.9 Obesity, unspecified; D72.829 Elevated white blood cell count, unspecified; S93.421A Sprain of deltoid ligament of right ankle, initial encounter; S93.439A Sprain of tibiofibular ligament of unspecified ankle, initial encounter; M65.9 Synovitis and tenosynovitis, unspecified; W01.0XXA Fall on same level from slipping, tripping and stumbling without subsequent striking against object, initial encounter; E78.5 Hyperlipidemia, unspecified; M79.7 Fibromyalgia; Z82.49 Family history of ischemic heart disease and other diseases of the circulatory system; Z79.01 Long term (current) use of anticoagulants; Z88.2 Allergy status to sulfonamides; Z68.32 Body mass index [BMI] 32.0-32.9, adult; M54.9 Dorsalgia, unspecified; W19.XXXA Unspecified fall, initial encounter; Y93.89 Activity, other specified; Y92.091 Bathroom in other non-institutional residence as the place of occurrence of the external cause
CPT/HCPCS: 36415; 70450; 73600; 73610; 76000; 80048; 80053; 80061; 81001; 81025; 82962; 83036; 83735; 84100; 84443; 84484; 85014; 85018; 85025; 85610; 85730; 87081; 87086; 93005; 93306; 93970; 94660; 96374; 96375; 97163; 97530; 99152; C1713; G0378; J0690; J0696; J2001; J2250; J2405; J2704

== ENCOUNTER → 2019-12-07 | Outpatient (CLI) | payer MEDICARE, OTHER ==
[~2019-12-07] MED LIST changes: -MIDAZOLAM HCL 5 MG/ML-1ML VIAL IV ONE; -MORPHINE SULF INJ 2 MG/ML SYRINGE 1ML ONE; -MORPHINE SULFATE 4 MG/ML SYR/VIAL IV ONE; -ONDANSETRON HCL 4 MG/2 ML VIAL IV ONE; -ONDANSETRON HCL 4 MG/2 ML VIAL ONE; -fentaNYL CITRATE 100 MCG/2 ML VL IV ONE
[2019-12-07 13:26] LABS: Basophils # (auto) 0.1 10 ^3/uL (0-0.2); Basophils % (auto) 0.6 % (0.0-2.0); Eosinophils # (auto) 0.4 10 ^3/uL (0-0.8); Eosinophils % (auto) 2.9 % (0.0-7.0); Hematocrit 40.3 % (36.0-46.0); Hemoglobin 13.6 g/dL (12.2-16.2); Lymphocytes # (auto) 2.6 10 ^3/uL (0.4-5.4); Lymphocytes % (auto) 20.4 % (10.0-50.0); Mean Corpuscular Hgb Conc. 33.7 g/dL (32.0-36.0); Monocytes # (auto) 0.7 10 ^3/uL (0-1.3); Monocytes % (auto) 5.7 % (0.0-12.0); Neutrophils # (auto) 8.9 10 ^3/uL (1.6-8.6); Neutrophils % (auto) 70.4 % (37.0-80.0); Platelet Count (auto) 229 10^3/uL (140-450); Red Blood Cells 4.38 10^6/uL (4.0-5.20); Red Cell Distribution Width 14.6 % (11.8-14.3); White Blood Cell 12.7 10^3/uL (4.4-10.8)
[2019-12-07 13:54] LABS: Albumin 3.5 g/dL (3.4-5.0); Calcium 8.3 mg/dL (8.5-10.1); Potassium 4.4 mmol/L (3.5-5.1)
[2019-12-07 13:59] LABS: BUN/Creatinine Ratio 12.3; Bilirubin, Total 0.4 mg/dL (0.2-1.0); Total Protein 6.7 g/dL (6.4-8.2)
== END | disposition home or self-care (01) ==
LOC: LAB 13:07
PROVIDERS: ATTEND Internal Medicine
DX: D72.829 Elevated white blood cell count, unspecified (principal)
CPT/HCPCS: 36415; 80053; 85025

== ENCOUNTER → 2020-01-07 | Emergency (ER) | payer MEDICARE, OTHER ==
[~2020-01-07] VITALS: Ht 172.7 cm; Wt 97.5 kg
[~2020-01-07] MED LIST changes: +IOHEXOL 350 MG/ML 100ML IJ ONE; -TIZA4CAP PO
[2020-01-07 17:54] VITALS: BP 135/81
== END | disposition left against medical advice (07) ==
LOC: ER 16:52
DX: M79.661 Pain in right lower leg (principal); R06.02 Shortness of breath; Z88.2 Allergy status to sulfonamides
CPT/HCPCS: 93005; 93970

== ENCOUNTER → 2020-01-09 | Outpatient (CLI) | payer MEDICARE, OTHER ==
[~2020-01-09] MED LIST changes: -IOHEXOL 350 MG/ML 100ML IJ ONE
== END | disposition home or self-care (01) ==
LOC: LAB 12:55
PROVIDERS: ATTEND Internal Medicine
DX: R09.02 Hypoxemia (principal); Z86.79 Personal history of other diseases of the circulatory system
CPT/HCPCS: 36415; 82565; 84520

== ENCOUNTER → 2020-02-27 | Outpatient (CLI) | payer OTHER, MEDICARE, MEDICAID | END | disposition home or self-care (01) | LOC: LAB 13:12 | PROVIDERS: ATTEND Internal Medicine | DX: I10 Essential (primary) hypertension (principal); I47.1 Supraventricular tachycardia | CPT/HCPCS: 83835 ==

== ENCOUNTER → 2020-12-09 | Outpatient (CLI) | payer OTHER, MEDICARE, MEDICAID ==
[2020-12-09 11:01] LABS: Basophils # (auto) 0.1 10 ^3/uL (0-0.2); Basophils % (auto) 0.6 % (0.0-2.0); Eosinophils # (auto) 0.3 10 ^3/uL (0-0.8); Eosinophils % (auto) 2.7 % (0.0-7.0); Hematocrit 41.6 % (36.0-46.0); Hemoglobin 13.8 g/dL (12.2-16.2); Lymphocytes # (auto) 2.8 10 ^3/uL (0.4-5.4); Lymphocytes % (auto) 24.8 % (10.0-50.0); Mean Corpuscular Hemoglobin 29.6 pg (28.0-32.0); Mean Corpuscular Hgb Conc. 33.1 g/dL (32.0-36.0); Mean Corpuscular Volume 89.7 fL (80.0-100.0); Monocytes # (auto) 0.6 10 ^3/uL (0-1.3); Monocytes % (auto) 5.4 % (0.0-12.0); Neutrophils # (auto) 7.6 10 ^3/uL (1.6-8.6); Neutrophils % (auto) 66.5 % (37.0-80.0); Nucleated Red Blood Cells % 0.1 %; Platelet Count (auto) 258 10^3/uL (140-450); Red Blood Cells 4.64 10^6/uL (4.0-5.20); White Blood Cell 11.4 10^3/uL (4.4-10.8)
[2020-12-09 11:16] LABS: Urine Bacteria NONE SEEN /hpf (None Seen); Urine Blood Negative /uL (Negative); Urine Specific Gravity 1.015 (1.001-1.035); Urine WBC 1 /hpf (0 - 5)
[2020-12-09 11:25] LABS: Calcium 8.3 mg/dL (8.5-10.1); Potassium 4.6 mmol/L (3.5-5.1)
[2020-12-09 11:32] LABS: Albumin 3.6 g/dL (3.4-5.0); BUN/Creatinine Ratio 15.7; Bilirubin, Total 0.5 mg/dL (0.2-1.0); Total Protein 6.8 g/dL (6.4-8.2)
== END | disposition home or self-care (01) ==
LOC: LAB 10:06
PROVIDERS: ATTEND Internal Medicine
DX: I10 Essential (primary) hypertension (principal); M25.50 Pain in unspecified joint
CPT/HCPCS: 36415; 80053; 80061; 81001; 82384; 84439; 84443; 85025; 85652